=== PATIENT | female | born 1960 | race American Indian/Alaskan Native ===

== ENCOUNTER 2022-03-14 07:55 | Emergency (ER) | payer MEDICARE ==
[2022-03-14 08:44] VITALS: BP 147/92
[2022-03-14] MEDS ORDERED: ZIPRASIDONE MESYLATE 20 MG VIAL IM PRN (10:47)
[2022-03-14] MEDS ORDERED: LORazepam 2 MG/ML VIAL IM PRN (10:47)
== END 2022-03-14 09:00 | disposition left against medical advice (07) ==
LOC: ED 07:55
DX: R45.851 Suicidal ideations (principal); Z53.21 Procedure and treatment not carried out due to patient leaving prior to being seen by health care provider

== ENCOUNTER 2022-06-25 11:37 | Emergency (ER) | payer MEDICARE ==
[2022-06-25 12:12] VITALS: BP 172/78
[2022-06-26] MEDS ORDERED: HYDROcodone/ACETAMINOPHEN 5-325 MG TAB PO STA (05:59)
--- NOTE | 2022-06-26 07:36 | Emergency Department Report ---
ED General Adult HPI - General Chief complaint: Medical Clearance Stated complaint: ABDOMINAL PAIN Time Seen by Provider: 06/26/22 02:17 Source: patient Mode of arrival: Ambulatory Limitations: No Limitations - History of Present Illness Initial comments: 62-year-old obese -[place] female history prediabetes presents emergency department complaining of a trip and fall injury a few days ago resulting in her landing on her left side striking her shoulder and now she has dull throbbing pain with range of motion but no numbness, no tingling. Pain is worse with palpation and range of motion and wakes at a moderate level. She also did have some issues with her toes primarily her left hallux and complaining of pain to the region as well and thinks that her toenail may be growing awkwardly cutting into her toe causing a secondary infection would like that evaluated as well reports no fever, chills, sweats. Does have some some numbness and tingling off and on to the toe but no discharge. Severity scale (0 -10): 7 Consistency: constant Improves with: none Worsens with: movement Associated Symptoms: denies: cough, diaphoresis, loss of appetite, malaise, nausea/vomiting, shortness of breath, syncope Treatments Prior to Arrival: none - Related Data Home Medications Medication Instructions Recorded Confirmed Last Taken Aspirin [Ecotrin] 81 mg PO DAILY 12/06/13 06/29/14 12/05/13 Previous Rx's Medication Instructions Recorded Last Taken Type Benztropine [Cogentin] 2 mg PO DAILY #30 tablet 09/04/13 12/05/13 Rx lisinopriL [Zestril TAB] 20 mg PO QDAY #30 tablet 09/04/13 12/05/13 Rx metFORMIN [Glucophage] 500 mg PO BID #60 tablet 09/04/13 12/05/13 Rx risperiDONE [RisperDAL] 5 mg PO QHS #30 tablet 09/04/13 12/05/13 Rx Divalproex ER [Depakote ER] 1,000 mg PO QDAY #30 tablet 06/29/14 Unknown Rx levETIRAcetam [Keppra TAB] 1,000 mg PO BID #60 tablet 06/29/14 Unknown Rx Sulfamethoxazole/Trimethoprim 1 each PO BID #14 06/26/22 Unknown Rx [Bactrim DS TAB] Allergies Allergy/AdvReac Type Severity Reaction Status Date / Time haloperidol [From Haldol] Allergy Unknown Verified 06/25/22 12:13 haloperidol lactate Allergy Unknown Verified 06/25/22 12:13 [From Haldol] latex Allergy Rash Verified 06/25/22 12:13 Penicillins Allergy Swelling Verified 06/25/22 12:13 phenytoin sodium Allergy Itching Verified 06/25/22 12:13 [From Dilantin] phenytoin sodium extended Allergy Itching Verified 06/25/22 12:13 [From Dilantin] tuberculin, purified protein Allergy Swelling Verified 06/25/22 12:13 deriva [Tuberculin,Purif.Prot.Deriv.] Paper Tape Allergy Rash Uncoded 06/25/22 12:13 ED Review of Systems ROS: Stated complaint: ABDOMINAL PAIN Other details as noted in HPI Comment: All other systems reviewed and negative ED Past Medical Hx - Past Medical History Hx Hypertension: Yes 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) Hx Seizures: Yes Hx Psychiatric Treatment: Yes Hx Asthma: Yes Additional medical history: Schizophrenia, Bipolar, 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 and speech impairment, Left arm Broken per Patient (Brace in place) - Social History Smoking Status: Current Every Day Smoker Substance Use Type: Alcohol - Medications Home Medications: Home Medications Medication Instructions Recorded Confirmed Last Taken Type Benztropine [Cogentin] 2 mg PO DAILY #30 tablet 09/04/13 06/29/14 12/05/13 Rx lisinopriL [Zestril TAB] 20 mg PO QDAY #30 tablet 09/04/13 06/29/14 12/05/13 Rx metFORMIN [Glucophage] 500 mg PO BID #60 tablet 09/04/13 06/29/14 12/05/13 Rx risperiDONE [RisperDAL] 5 mg PO QHS #30 tablet 09/04/13 06/29/14 12/05/13 Rx Aspirin [Ecotrin] 81 mg PO DAILY 12/06/13 06/29/14 12/05/13 History Divalproex ER [Depakote ER] 1,000 mg PO QDAY #30 tablet 06/29/14 Unknown Rx levETIRAcetam [Keppra TAB] 1,000 mg PO BID #60 tablet 06/29/14 Unknown Rx Sulfamethoxazole/Trimethoprim 1 each PO BID #14 06/26/22 Unknown Rx [Bactrim DS TAB] ED Physical Exam - General Limitations: No Limitations General appearance: alert, in no apparent distress - Head Head exam: Present: atraumatic, normocephalic - Eye Eye exam: Present: normal appearance - ENT ENT exam: Present: mucous membranes moist - Neck Neck exam: Present: normal inspection - Respiratory Respiratory exam: Present: normal lung sounds bilaterally. Absent: respiratory distress - Cardiovascular Cardiovascular Exam: Present: regular rate, normal rhythm. Absent: systolic murmur, diastolic murmur, rubs, gallop - GI/Abdominal GI/Abdominal exam: Present: soft, normal bowel sounds - Extremities Exam Extremities exam: Present: normal inspection, tenderness (To the greater trochanteric region of the shoulder. No tenderness to the acromioclavicular joint. No sulcus sign. There is some mild crepitus with range of motion. There is no bruising no deformity strength is 5 of 5 and range of motion is near full.), other (To the left hallux there is some evolving erythema around the nailbed base but no discharge curling of the toenails and thickening and appearance suggestive of onychomycosis but no lymphangitis is appreciated.) - Back Exam Back exam: Present: normal inspection - Neurological Exam Neurological exam: Present: alert, oriented X3 - Psychiatric Psychiatric exam: Present: normal affect, normal mood - Skin Skin exam: Present: warm, dry, intact, normal color. Absent: rash ED Course Vital Signs 06/25/22 12:10 Temperature 98 F Pulse Rate 88 Respiratory 18 Rate Blood Pressure 172/78 [Left] O2 Sat by Pulse 99 Oximetry Critical care attestation.: If time is entered above; I have spent that time in minutes in the direct care of this critically ill patient, excluding procedure time. ED Disposition Clinical Impression: Toe pain, Arm contusion, Onychomycosis Disposition: HOME / SELF CARE / HOMELESS Is pt being admited?: No Does the pt Need Aspirin: No Condition: Stable Instructions: Fungal Nail Infection, Contusion, [id number], How to Use Cold Therapy Additional Instructions: Seen by emergency department day for fall related pain to your shoulder resulting in a contusion. Also pain to your toe secondary to onychomycosis and movement toe infection. Please sure to follow-up with your foot doctor so they can further evaluate proper treatment of your toenail and the looming and infection. Utilize Tylenol and Motrin as needed for your shoulder pain as well as ice and be sure to exhibit follow-up precautions Prescriptions: Sulfamethoxazole/Trimethoprim [Bactrim DS TAB] 1 each PO BID #14 Referrals: PRIMARY CARE, [Primary Care Provider] - 3-5 Days
== END 2022-06-26 10:55 | disposition left against medical advice (07) ==
LOC: ED 11:37
DX: S40.029A Contusion of unspecified upper arm, initial encounter (principal); M79.676 Pain in unspecified toe(s); X58.XXXA Exposure to other specified factors, initial encounter; J45.909 Unspecified asthma, uncomplicated; I10 Essential (primary) hypertension; B35.1 Tinea unguium; F17.200 Nicotine dependence, unspecified, uncomplicated; Z88.0 Allergy status to penicillin; Z88.8 Allergy status to other drugs, medicaments and biological substances; Y93.89 Activity, other specified; Y92.89 Other specified places as the place of occurrence of the external cause; Y99.8 Other external cause status
CPT/HCPCS: 99282